=== PATIENT | female | born 1940 | race Caucasian/White ===

== ENCOUNTER → 2017-01-11 08:23 | Outpatient (CLI) | payer MEDICARE, OTHER ==
[2016-08-02 12:56] VITALS: BMI 30.2
[~2017-01-11 08:23] MED LIST: ANUSOL-HC25 MG RC; ATIVAN1 MG PO; BACTROBAN 22 GM22 GM TOPICAL; CELEXA20 MG PO; CLARITIN 10 MG10 MG PO; CYCLOBENZAPRINE10 MG PO; FELDENE 10 MG C10 MG PO; FLUTICASONE PRO16 GM NASAL; GABAPENTIN100 MG PO; GAS-X125 M1 PO; HYDROCODON-ACE1 EAC7 PO; K-DUR20 MEQ PO; LASIX20 MG PO; LINZESS290 MCG PO; MIRALAX17 GM PO; NIASPAN500 MG PO; NORCO 7.5/325 T1 TA1 PO; NORVASC2.5 MG PO; OYST-CAL-5001 TAB PO; PEPCID20 MG PO; PRILOSEC20 MG PO; REMERON15 MG PO; RESTORIL7.5 MG PO; SYNTHROID50 MCG PO; VITAMIN D31000 UNIT PO; WELLBUTRIN SR150 MG PO
== END | disposition home or self-care (01) ==
LOC: D.CT 08:23
DX: R10.9 Unspecified abdominal pain (principal); R22.2 Localized swelling, mass and lump, trunk

== ENCOUNTER → 2017-06-05 08:26 | Outpatient (CLI) | payer MEDICARE, OTHER ==
[2016-08-02 12:56] VITALS: BMI 30.2
== END | disposition home or self-care (01) ==
LOC: D.CT 08:26
DX: J98.4 Other disorders of lung (principal)

== ENCOUNTER → 2017-07-03 14:04 | Outpatient (CLI) | payer MEDICARE, OTHER ==
[2016-08-02 12:56] VITALS: BMI 30.2
== END | disposition home or self-care (01) ==
LOC: D.CT 14:04
DX: R10.9 Unspecified abdominal pain (principal)

== ENCOUNTER → 2017-12-03 08:23 | Outpatient (CLI) | payer MEDICARE, OTHER ==
[2016-08-02 12:56] VITALS: BMI 30.2
== END | disposition home or self-care (01) ==
LOC: D.CT 08:23
DX: R10.11 Right upper quadrant pain (principal); R10.31 Right lower quadrant pain; R91.8 Other nonspecific abnormal finding of lung field

== ENCOUNTER → 2018-08-01 12:55 | Day surgery (SDC) | payer MEDICARE, OTHER ==
[~2018-08-01] VITALS: Ht 147.3 cm; Wt 54.5 kg
--- NOTE | ~2018-08-01 | OP ---
PATIENT NAME: KHOA LEWIS MEDICAL RECORD: [id number] :38 LOCATION:D.OPS ADMISSION DATE: SURGEON: TOM REYNA MD DATE OF OPERATION: 08/01/2018 PROCEDURE: Colonoscopy with biopsy and polypectomy. REFERRING PHYSICIAN: Yanick Fairbanks MD INDICATIONS: Ms. Lewis is a delightful 77-year-old woman with history of obstructive sleep apnea, who has had symptoms of right lower quadrant pain and constipation. Right lower quadrant pain has been present since 2016 and remains constant. 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 Her last colonoscopy was with Dr. Richardson in 2011 with findings showing marked proctitis and diverticular disease involving the left colon. She presents for outpatient colonoscopy. PREMEDICATIONS: Total IV anesthesia (obstructive sleep apnea), propofol 240 mg. INSTRUMENT: Olympus video colonoscope, pediatric. PROCEDURE AND FINDINGS: After receiving informed consent, Ms. Lewis was placed in left lateral decubitus position, sedated as per anesthesia. After achieving adequate level of sedation, digital rectal exam was performed and it showed few external hemorrhoid tags. No fissure or fistulas. Normal sphincter tone. No palpable rectal masses. Colonoscope was introduced per rectally and advanced to the cecum. She had a somewhat redundant sigmoid colon. The cecum, IC valve, and appendical orifice were identified. As the colonoscope was withdrawn, careful inspection was made of the washburn of the colon. Overall mucosa had normal vascular and fold pattern. There were multiple diverticula scattered throughout the sigmoid colon. In the mid sigmoid colon, was a 0.5-cm sessile polyp, removed with biopsy forcep technique. There were 2 areas of erythematous changes in the rectum. One area was mildly ulcerated and biopsies were obtained. Retroflexion in rectum showed no significant internal hemorrhoids. A good prep was present. Withdrawal time was 6 minutes. Ms. Lewis tolerated the procedure well. No immediate complications. ASSESSMENT: 1. Moderate sigmoid diverticulosis coli. 2. Sigmoid polyp, status post polypectomy. 3. Mild proctitis. 4. Right lower quadrant pain, suspect secondary to nerve impingement. RECOMMENDATIONS: 1. Followup histopathology. 2. Avoid aspirin, nonsteroidal anti-inflammatory drugs, and SOMMERS-2 inhibitors 14 days post-polypectomy. 3. Daily Metamucil or Citrucel. TRANSINT:[id number] Voice Confirmation ID: [id number] DOCUMENT ID: [id number] OPERATIVE REPORT [id number] KHOA LEWIS TERRI MD at 1534 CC: YANICK FAIRBANKS [id number] DICTATION DATE: 08/01/18 1543 IC ENGINEER: 08/01/18 1716 [facility] [place] 08/01/18 [id number] [place] [address]
[2018-08-01 13:18] LABS: HEMATOCRIT 41.5 % (36.0-48.0); HEMOGLOBIN 13.8 g/dL (12-16); LYMPHOCYTES 24.9 % (15-50); MCH 29.8 pg (26.0-34.0); MCHC 33.3 g/dL (31.0-37.0); MCV 89.6 fL (80.0-100.0); MEAN PLATELET VOLUME 8.7 fL (7.4-10.4); NEUTROPHILS 68.3 % (40-80); PLATELET COUNT 400 10x3/uL (130-400); RBC 4.63 10x6/uL (4.00-5.40); RDW 13.3 % (11.5-14.5); WBC 7.8 10x3/uL (4.8-10.8)
[2018-08-01 13:26] VITALS: BP 160/91; Ht 147.3 cm; Wt 54.5 kg
[2018-08-01 13:32] LABS: ANION GAP 17.5 mmol/L (8-16); CALCIUM 9.2 mg/dL (8.5-10.1); CREATININE - SERUM 0.9 mg/dL (0.6-1.3); POTASSIUM - SERUM 3.5 mmol/L (3.5-5.1)
== END | disposition home or self-care (01) ==
LOC: D.OPS 12:55
PROVIDERS: Anesthesiology
DX: K57.30 Diverticulosis of large intestine without perforation or abscess without bleeding (principal); D12.5 Benign neoplasm of sigmoid colon; K62.89 Other specified diseases of anus and rectum; K59.00 Constipation, unspecified; G47.33 Obstructive sleep apnea (adult) (pediatric); Z01.812 Encounter for preprocedural laboratory examination